=== PATIENT | male | born 1985 | race Caucasian/White ===

== ENCOUNTER 2020-12-23 11:05 | Emergency (ER) | payer OTHER ==
--- NOTE | 2020-12-23 11:18 | ED Physician Documentation ---
PD HPI URI - Stated complaint Stated Complaint: ABD/HEAD PX - Chief complaint Chief Complaint: General - History obtained from History obtained from: Patient - History of Present Illness Timing - onset: How many days ago (5) Timing duration: Days (5) Timing details: Abrupt onset, Still present Associated symptoms: Chills, Dry cough, NVD (nausea with only couple episodes vomiting. Poor intake though. Had 2 days of diarrhea and then has not had BM the past 3 days. Decreased urine output. Not hurting per se.), Other (general m alaise.). No: Fever, Swollen nodes Contributing factors: Other (his without similar symptoms. No noted unusual foods. Had COVID test done at [facility] 3 days ago that was negative.). No: Sick contact, Travel, Immunocompromised Similar symptoms before: Has not had sx before Recently seen: Not recently seen Review of Systems Constitutional: reports: Chills, Myalgias, Fatigue. denies: Fever Nose: reports: Sinus pressure / pain. denies: Rhinorrhea / runny nose, Congestion Throat: denies: Sore throat Cardiac: denies: Chest pain / pressure Respiratory: reports: Cough. denies: Dyspnea, Wheezing GI: reports: Nausea, Vomiting, Diarrhea (initially, then no stools for 3 days) : denies: Dysuria (but noting dark color), Discharge Skin: denies: Rash Musculoskeletal: denies: Neck pain, Back pain Neurologic: reports: Generalized weakness, Headache (frontal area). denies: Near syncope, Altered mental status PD PAST MEDICAL HISTORY - Past Medical History Past Medical History: No - Past Surgical History Past Surgical History: No - Present Medications Home Medications: Ambulatory Orders Medication Instructions Recorded Confirmed HYDROcod/ACETAM 5/325 [Malone 5/325] 1 ea PO Q6H PRN #14 tablet 12/23/20 Ondansetron Odt [Zofran] 4 mg TL Q6H PRN #15 tablet 12/23/20 - Allergies Allergies/Adverse Reactions: Allergies Allergy/AdvReac Type Severity Reaction Status Date / Time No Known Drug Allergies Allergy Verified 12/23/20 11:12 PD ED PE NORMAL - Vitals Vital signs reviewed: Yes - General General: Alert and oriented X 3, Well developed/nourished - HEENT HEENT: Pharynx benign. No: Moist mucous membranes - Neck Neck: Supple, no meningeal sign, No adenopathy - Cardiac Cardiac: RRR, No murmur - Respiratory Respiratory: Clear bilaterally - Abdomen Abdomen: Normal bowel sounds, Soft, Non distended, No organomegaly, Other (tender lower abd left and right, with some percussion tender and guarding. ) - Male Male : Deferred - Rectal Rectal: Deferred - Back Back: No CVA TTP - Derm Derm: Normal color, Warm and dry - Extremities Extremities: No tenderness to palpate, No edema - Neuro Neuro: Alert and oriented X 3, No motor deficit, Normal speech Results - Vitals Vitals: Vital Signs - 24 hr 12/23/20 12/23/20 12/23/20 11:08 13:12 14:15 Temperature 36.6 C 36.9 C Heart Rate 98 70 69 Respiratory 17 19 19 Rate Blood Pressure 140/101 H 116/90 H 121/72 O2 Saturation 95 100 100 Oxygen O2 Source Room air - Labs Labs: Laboratory Tests 12/23/20 12/23/20 12/23/20 12:05 12:05 13:38 WBC 5.5 RBC 5.11 Hgb 14.7 Hct 41.9 L MCV 82.0 MCH 28.8 MCHC 35.1 RDW 11.6 L Plt Count 202 MPV 10.2 Neut # (Auto) 3.8 Lymph # (Auto) 0.7 L [place] # (Auto) 0.9 Eos # (Auto) 0.0 Baso # (Auto) 0.0 Absolute Nucleated RBC 0.00 Nucleated RBC % 0.0 Sodium 138 Potassium 3.6 Chloride 95 L Carbon Dioxide 29 Anion Gap 14.0 H BUN 11 Creatinine 1.0 Estimated GFR (MDRD) 86 L Glucose 102 H Calcium 9.4 Total Bilirubin 0.8 AST 21 ALT 21 Alkaline Phosphatase 44 Total Protein 7.7 Albumin 3.9 Globulin 3.8 Albumin/Globulin Ratio 1.0 Lipase 18 L Urine Color DARK YELLOW Urine Clarity CLEAR Urine pH 6.0 Ur Specific [place] 1.015 Urine Protein 30 H Urine Glucose (UA) NEGATIVE Urine Ketones NEGATIVE Urine Occult Blood MODERATE H Urine Nitrite NEGATIVE Urine Bilirubin NEGATIVE Urine Urobilinogen 2 H Ur Leukocyte Esterase NEGATIVE Urine RBC 0-5 Urine WBC 0-3 Ur Squamous Epith Cells NONE SEEN Urine Bacteria Few Ur Microscopic Review INDICATED Urine Culture Comments NOT INDICATED - Rads (name of study) abd/pelvic CT Radiology: Prelim report reviewed (normal appendix. No localized process. Some enlarged mesenteric nodes left lower, c/w mesenteric adenitis. ), See rad report PD MEDICAL DECISION MAKING - ED course Complexity details: reviewed results (CT showing some mesenteric nodes; no acute localized process.), re-evaluated patient (he is feeling much better with fluids and meds. ), considered differential (Seems possibly COVID, but had negative rapid test at [facility] several days ago. Can recheck it to verify. Has lower abd pain/tenderness and consider atypical appendicitis, diverticulitis, colitis. ), d/w patient Departure - Departure Disposition: Home, Self Care Clinical Impression: Acute viral syndrome, Dehydration, Nausea vomiting and diarrhea, Mesenteric adenitis Condition: Stable Record reviewed to determine appropriate education?: Yes Instructions: ED Viral Syndrome, ED Adenitis Mesenteric Prescriptions: HYDROcod/ACETAM 5/325 [[place] 5/325] 1 ea PO Q6H PRN #14 tablet PRN Reason: Pain Ondansetron Odt [Zofran] 4 mg TL Q6H PRN #15 tablet PRN Reason: Nausea / Vomiting Comments: I presume this is a viral type illness with some inflammation of the lymph nodes in through the mesentery along with your general viral type symptoms. No signs of any particular bacterial infection. Stay well-hydrated with frequent fluids. Diet as tolerated. Use ondansetron if needed for nausea. Ibuprofen or naproxen 2-3 times daily with food. To that add Tylenol if needed for pains, or hydrocodone for worse general pains/headache/etc. I would anticipate improvement over the next several days since you have been ill for several days already. You have a Covid test pending. You need to self quarantine until the result is done and negative. Do not leave your house. Do not get near anybody. The results should be done in 48 to 72 hours, but sometimes longer. We will call with a positive result, the fastest way to get a negative result for confirmation though is to go to the hospital website at [email or web address], click on the my [employer] tab and sign up for the patient portal. If any friends or family get sick and would like to have a Covid test done, but do not have signs or symptoms that would necessitate being hospitalized, we encourage testing through our coronavirus swabbing station, call [phone] to schedule an appointment. Recheck if not improved well over the next several days. Discharge Date/Time: 12/23/20 14:15
[2020-12-23] MEDS ORDERED: SODIUM CHLORIDE 0.9% 1,000 ML IV STA ×2 (11:51→13:17)
[2020-12-23] MEDS ORDERED: ONDANSETRON 4 MG/2 ML VIAL IVP STA (11:51)
[2020-12-23] MEDS ORDERED: KETOROLAC 30 MG/ML VIAL IVP STA (11:52)
[2020-12-23] MEDS ORDERED: IOVERSOL 320 100 ML VIAL IVP ONE ×2 (12:07→13:09)
[2020-12-23 12:13] LABS: BASOPHILS % (AUTO) 0.5 %; EOSINOPHILS % (AUTO) 0.5 %; HCT - HEMATOCRIT 41.9 % (42.0-52.0); HGB - HEMOGLOBIN 14.7 g/dL (14.0-18.0); LYMPHOCYTES # (AUTO) 0.7 10^3/uL (1.5-3.5); LYMPHOCYTES % (AUTO) 12.3 %; MEAN CORPUSCULAR HEMOGLOBIN 28.8 pg (27.0-31.0); MEAN CORPUSCULAR HGB CONC 35.1 g/dL (32.0-36.0); MEAN PLATELET VOLUME 10.2 fL (7.4-11.4); MONOCYTES # (AUTO) 0.9 10^3/uL (0.0-1.0); MONOCYTES % (AUTO) 16.5 %; NEUTROPHILS # (AUTO) 3.8 10^3/uL (1.5-6.6); PLT - PLATELET COUNT 202 10^3/uL (130-450); RED BLOOD COUNT 5.11 10^6/uL (4.70-6.10); RED CELL DISTRIBUTION WIDTH 11.6 % (12.0-15.0); WHITE BLOOD COUNT 5.5 x10^3/uL (4.8-10.8)
[2020-12-23 12:30] LABS: ALBUMIN 3.9 g/dL (3.2-5.5); BILIRUBIN,TOTAL 0.8 mg/dL (0.2-1.0); CALCIUM 9.4 mg/dL (8.5-10.3); POTASSIUM 3.6 mmol/L (3.5-5.0); TOTAL PROTEIN 7.7 g/dL (6.7-8.2)
--- NOTE | 2020-12-23 13:26 | CT Report ---
PROCEDURE: Abdomen/Pelvis W INDICATIONS: LLQ Abdominal pain, diverticulitis suspected CONTRAST: IV CONTRAST: Optiray 320 ml: 100 PO CONTRAST: *NO PO CONTRAST TECHNIQUE: After the administration of intravenous contrast, 5 mm thick sections acquired from the diaphragms to the symphysis. 5 mm thick coronal and sagittal reformats were acquired. For radiation dose reducti on, the following was used: automated exposure control, adjustment of mA and/or kV according to erna ent size. COMPARISON: None. FINDINGS: Image quality: Excellent. ABDOMEN: Lung bases: Lung bases are clear. Heart size is normal. Solid organs: Liver and spleen are normal in size and enhancement. Gallbladder is unremarkable Joshua iary system is non dilated. Pancreas enhances normally. No adrenal nodules. Kidneys demonstrate no rmal size and enhancement, without hydronephrosis. Peritoneum and bowel: Bowel loops demonstrate normal wall thickness and caliber. No free fluid or a ir. Nodes and vessels: No retroperitoneal or mesenteric adenopathy by size criteria. There are definitel y left abdominal mesenteric lymph nodes which are increased in number and somewhat prominent with inf lammatory change in the surrounding mesenteric fat. These lymph nodes are likely reactive. Aorta and inferior vena cava are normal in size. Miscellaneous: No ventral hernias. PELVIS: Genitourinary: Bladder wall thickness is normal. Miscellaneous: No inguinal hernias or adenopathy. Bones: No suspicious bony lesions. No vertebral body compression fractures. IMPRESSION: 1. There is no acute bowel pathology identified. 2. Prominent left abdominal mesenteric lymph nodes with inflammatory change in the surrounding fat. F indings are suggestive of mesenteric adenitis. Reviewed by: Maurice Frost MD on 12/23/2020 12:25 PM [facility] Approved by: Maurice Frost MD on 12/23/2020 12:25 PM [facility] Station ID: [id number]
[2020-12-23 13:45] LABS: GLUCOSE, URINE (UA) NEGATIVE (NEGATIVE); KETONES,URINE (UA) NEGATIVE (NEGATIVE); LEUKOCYTE ESTERASE, URINE NEGATIVE (NEGATIVE); NITRITE,URINE NEGATIVE (NEGATIVE); OCCULT BLOOD,URINE MODERATE (NEGATIVE); PROTEIN,URINE 30 mg/dL (NEGATIVE); UROBILINOGEN,URINE 2 E.U./dL (NORMAL)
[2020-12-23 13:48] LABS: CLARITY,URINE CLEAR (CLEAR)
[2020-12-23 13:51] LABS: BILIRUBIN,URINE NEGATIVE (NEGATIVE); ICTOTEST,URINE NEGATIVE
[2020-12-23 14:03] LABS: BACTERIA,URINE Few /HPF (None Seen); RBC,URINE 0-5 /HPF (0-5); SQUAMOUS EPITHELIAL CELL,UR NONE SEEN (<= Few); WBC,URINE 0-3 /HPF (0-3)
[2020-12-23 14:16] VITALS: BP 121/72
== END 2020-12-23 14:15 | disposition home or self-care (01) ==
LOC: ED 11:05
DX: B34.9 Viral infection, unspecified (principal); E86.0 Dehydration; I88.0 Nonspecific mesenteric lymphadenitis; Z20.822 Contact with and (suspected) exposure to COVID-19
CPT/HCPCS: 36415; 74177; 80053; 81001; 83690; 85025; 87635; 96361; 96374; 99284; Q9967; 81003; 87086